=== PATIENT | female | born 1985 | race Hispanic/Latino ===

== ENCOUNTER 2017-07-11 22:00 | Emergency (ER) | payer MEDICAID ==
[2017-07-12] MEDS ORDERED: HALDOL IM ONE (04:54)
[2017-07-12] MEDS ORDERED: NACL 0.9% 1000 ML 1,000 ML IV ONE (04:54)
[2017-07-12] MEDS ORDERED: PHENERGAN PO ONE (05:21)
[2017-07-12] MEDS ORDERED: SUBLIMAZE IV ONE (05:22)
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
[2017-07-12 06:09] VITALS: BP 91/56
== END 2017-07-12 06:58 | disposition home or self-care (01) ==
LOC: ED 22:00
DX: F41.9 Anxiety disorder, unspecified (principal); G43.909 Migraine, unspecified, not intractable, without status migrainosus; F90.9 Attention-deficit hyperactivity disorder, unspecified type; Z87.891 Personal history of nicotine dependence; Z88.1 Allergy status to other antibiotic agents; Z88.5 Allergy status to narcotic agent; Z91.040 Latex allergy status
CPT/HCPCS: 96361; 96372; 96374; 99283; J1630; J3010; J7030; Q0169

== ENCOUNTER 2017-10-03 16:34 | Emergency (ER) | payer MEDICAID ==
[2017-10-03 17:06] VITALS: BP 105/66
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
== END 2017-10-03 19:01 | disposition home or self-care (01) ==
LOC: ED 16:34
DX: S93.491A Sprain of other ligament of right ankle, initial encounter (principal); G43.909 Migraine, unspecified, not intractable, without status migrainosus; F31.9 Bipolar disorder, unspecified; Z88.8 Allergy status to other drugs, medicaments and biological substances; Z88.1 Allergy status to other antibiotic agents; Z91.040 Latex allergy status; X50.1XXA Overexertion from prolonged static or awkward postures, initial encounter; Y93.89 Activity, other specified; Y92.89 Other specified places as the place of occurrence of the external cause; Y99.8 Other external cause status
CPT/HCPCS: 99282

== ENCOUNTER 2022-03-22 12:08 | Emergency (ER) | payer MEDICAID, OTHER ==
[2022-03-22] MEDS ORDERED: PROMETHAZINE 25 MG TAB PO ONE (18:22)
[2022-03-22] MEDS ORDERED: HYDROcodone/ACETAMINOPHEN 10-325MG TAB PO ONE (18:22)
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
--- NOTE | 2022-03-22 18:58 | XRay Report ---
Right ankle 3 views INDICATION: Pain FINDINGS: Diffuse swelling throughout the foot and ankle. Talar dome appears intact. Hardware seen wi th posterior subtalar fusion. No displaced fracture. Right forearm 2 views INDICATION: Pain FINDINGS: Radius and ulna appear intact. No acute fractures seen. Signer Name: Juan J Gastelum MD Signed: 03/22/2022 6:54 PM Workstation Name: [id number]
--- NOTE | 2022-03-22 18:58 | XRay Report ---
Right ankle 3 views INDICATION: Pain FINDINGS: Diffuse swelling throughout the foot and ankle. Talar dome appears intact. Hardware seen wi th posterior subtalar fusion. No displaced fracture. Right forearm 2 views INDICATION: Pain FINDINGS: Radius and ulna appear intact. No acute fractures seen. Signer Name: Juan J Gastelum MD Signed: 03/22/2022 6:54 PM Workstation Name: [id number]
[2022-03-22] MEDS ORDERED: KETOROLAC 30 MG/1 ML INJ IV ONE (20:06)
[2022-03-22 21:13] LABS: Basophils % (Auto) 0.6 % (0.0-1.8); Eosinophils # (Auto) 0.2 K/mm3 (0.0-0.4); Eosinophils % (Auto) 2.5 % (0.0-4.3); Hematocrit 44.3 % (30.3-42.9); Hemoglobin 14.1 gm/dl (10.1-14.3); Lymphocytes # (Auto) 2.2 K/mm3 (1.2-5.4); Lymphocytes % (Auto) 29.2 % (13.4-35.0); Mean Corpuscular HGB Conc 32 % (30-34); Mean Corpuscular Volume 88 fl (79-97); Monocytes # (Auto) 0.6 K/mm3 (0.0-0.8); Monocytes % (Auto) 7.9 % (0.0-7.3); Platelet Count 307 K/mm3 (140-440); Red Blood Count 5.04 M/mm3 (3.65-5.03); Red Cell Distribution Width 15.9 % (13.2-15.2)
[2022-03-22 21:18] LABS: Alanine Aminotransferase 10 units/L (7-56); Albumin 4.1 g/dL (3.9-5); BUN/Creatinine Ratio 13; Blood Urea Nitrogen 10 mg/dL (7-17); Calcium 8.8 mg/dL (8.4-10.2); Hemolysis Index 11
[2022-03-22] MEDS ORDERED: hydrOXYzine PAMOATE 25 MG CAP PO ONE (22:17)
[2022-03-22] MEDS ORDERED: diazePAM 10 MG/2 ML SYRINGE IV ONE (23:42)
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
[2022-03-23 05:06] VITALS: BP 107/79
== END 2022-03-23 05:45 | disposition home or self-care (01) ==
LOC: ED 12:08
DX: S93.491A Sprain of other ligament of right ankle, initial encounter (principal); S39.011A Strain of muscle, fascia and tendon of abdomen, initial encounter; M62.830 Muscle spasm of back; M54.50 Low back pain, unspecified; M79.631 Pain in right forearm; N20.0 Calculus of kidney; G43.909 Migraine, unspecified, not intractable, without status migrainosus; M79.7 Fibromyalgia; Z98.890 Other specified postprocedural states; Z88.1 Allergy status to other antibiotic agents; Z91.040 Latex allergy status; Z88.5 Allergy status to narcotic agent; Z88.8 Allergy status to other drugs, medicaments and biological substances; Z79.899 Other long term (current) drug therapy; V89.2XXA Person injured in unspecified motor-vehicle accident, traffic, initial encounter; Y93.89 Activity, other specified; Y92.488 Other paved roadways as the place of occurrence of the external cause; Y99.8 Other external cause status
CPT/HCPCS: 36415; 73090; 73610; 74177; 80053; 84703; 85025; 96374; 96375; 99285; J1885; J3360; Q0169; Q9967

== ENCOUNTER 2022-03-23 11:17 | Emergency (ER) | payer OTHER, MEDICAID | END 2022-03-23 14:43 | disposition left against medical advice (07) | LOC: ED 11:17 | DX: Z76.0 Encounter for issue of repeat prescription (principal); Z53.21 Procedure and treatment not carried out due to patient leaving prior to being seen by health care provider ==